=== PATIENT | male | born 1965 | race American Indian/Alaskan Native ===

== ENCOUNTER 2021-12-14 07:34 | Inpatient (IN) | payer SELFPAY ==
[2021-12-14] MEDS ORDERED: MAGNESIUM SULFATE 2 GM/50 ML BAG IV ONE (09:34)
[2021-12-14] MEDS ORDERED: methylPREDNISolone Sod Succinate 125 MG/2 ML INJ IV ONE (09:34)
[2021-12-14] MEDS ORDERED: ALBUTEROL 2.5 MG/3 ML NEBU IH ONE ×2 (09:35→13:55)
[2021-12-14] MEDS ORDERED: IPRATROPIUM 0.02% NEBU 2.5 ML IH ONE (09:35)
--- NOTE | 2021-12-14 09:42 | Emergency Department Report ---
ED Shortness of Breath HPI - General Stated Complaint: RYLAN/CP Time Seen by Provider: 12/14/21 09:20 Source: patient, EMS, old records reviewed (none available) Mode of arrival: Stretcher Limitations: No Limitations - History of Present Illness Initial Comments: 56-year-old male presents with EMS with complaints of shortness of breath. No previous medical record available for review. EMS reports they picked him up from an extended stay with child's other individuals in the room. Patient reports a past medical history of hypertension, asthma, CAD with stent, insulin-dependent diabetes. He has been short of breath with chest pain for a few days. Patient was wheezing upon EMS arrival. He was treated with albuterol 7.5 mg, Atrovent 0.5, aspirin, and nitroglycerin. EMS reports noting multiple PVCs and several episodes of nonsustained V. tach. Rhythm strip not available for review. Patient apparently was drinking all night but denies being alcoholic. He denies other substance abuse. Patient appears agitated with intermittent movement in the bed but states he is acting this way because he is cold. EMS reports that people at the scene report that his mental status was normal. Patient does appear to be mildly drowsy upon arrival. Stat blood glucose check and ABG ordered to rule out CO2 retention - Related Data Allergies Allergy/AdvReac Type Severity Reaction Status Date / Time No Known Allergies Allergy Unverified 12/14/21 09:22 ED Review of Systems ROS: Stated complaint: RYLAN/CP Other details as noted in HPI Comment: All other systems reviewed and negative ED Physical Exam - Other Other exam information: General: No acute distress Head: Atraumatic Eyes: normal appearance ENT: Moist mucous membranes Neck: Normal appearance, no midline tenderness Chest: Bilateral wheezing without tachypnea or accessory muscle use CV: Regular rate and rhythm Abdomen: Soft, normal bowel sounds, nontender, nondistended, no rebound or guarding Back: Normal inspection Extremity: Bilateral lower extremity pitting edema 2+ Neuro: Appears drowsy but easily arousable to voice, oriented x3. No facial asymmetry, speech mildly slurred, equal handgrip and foot dorsiflexion Psych: Cooperative Skin: No rash ED Course Vital Signs 12/14/21 12/14/21 12/14/21 09:27 09:31 09:36 Temperature 98.8 F Pulse Rate 105 H 105 H Pulse Rate [ Bilateral Throughout] Respiratory 19 17 Rate Respiratory Rate [Bilateral Throughout] Blood Pressure 160/92 146/95 Blood Pressure 146/95 [Left] O2 Sat by Pulse 95 92 94 Oximetry 12/14/21 12/14/21 12/14/21 09:45 10:01 10:09 Temperature 98.8 F Pulse Rate 107 H 107 H Pulse Rate [ Bilateral Throughout] Respiratory 18 19 30 H Rate Respiratory Rate [Bilateral Throughout] Blood Pressure 146/95 146/95 Blood Pressure 176/114 [Left] O2 Sat by Pulse 95 95 90 Oximetry 12/14/21 12/14/21 12/14/21 10:15 10:20 10:31 Temperature Pulse Rate 104 H 103 H Pulse Rate [ 108 H Bilateral Throughout] Respiratory 20 20 Rate Respiratory 18 Rate [Bilateral Throughout] Blood Pressure 176/114 129/102 Blood Pressure [Left] O2 Sat by Pulse 92 99 Oximetry 12/14/21 12/14/21 12/14/21 10:45 11:01 13:31 Temperature Pulse Rate 110 H 108 H 112 H Pulse Rate [ Bilateral Throughout] Respiratory 23 26 H 21 Rate Respiratory Rate [Bilateral Throughout] Blood Pressure 164/110 169/110 Blood Pressure 171/106 [Left] O2 Sat by Pulse 95 99 97 Oximetry - Reevaluation(s) Reevaluation #1: 12/14/21 10:45 ABG results noted. Discussed with respiratory therapist. Likely mixed venous. Will repeat ED Medical Decision Making - Lab Data Result diagrams: 12/14/21 10:30 12/14/21 10:30 Lab Results 12/14/21 12/14/21 12/14/21 Range/Units 09:33 10:10 10:30 WBC 6.9 (4.5-11.0) K/mm3 RBC 4.74 (3.65-5.03) M/mm3 Hgb 13.8 (11.8-15.2) gm/dl Hct 42.4 (35.5-45.6) % MCV 89 (84-94) fl MCH 29 (28-32) pg MCHC 33 (32-34) % RDW 19.5 H (13.2-15.2) % Plt Count 127 L (140-440) K/mm3 Lymph % (Auto) 17.5 (13.4-35.0) % Randall % (Auto) 4.5 (0.0-7.3) % Eos % (Auto) 1.6 (0.0-4.3) % Baso % (Auto) 2.7 H (0.0-1.8) % Lymph # (Auto) 1.2 (1.2-5.4) K/mm3 Randall # (Auto) 0.3 (0.0-0.8) K/mm3 Eos # (Auto) 0.1 (0.0-0.4) K/mm3 Baso # (Auto) 0.2 H (0.0-0.1) K/mm3 Seg Neutrophils % 73.7 H (40.0-70.0) % Seg Neutrophils # 5.1 (1.8-7.7) K/mm3 PT (12.2-14.9) Sec. INR (0.87-1.13) APTT (24.2-36.6) Sec. ABG pH 7.370 (7.350-7.450) pH Units ABG pCO2 46.4 mm Hg ABG pO2 38.6 L* (80.0-90.0) mm Hg ABG HCO3 26.3 H (20.0-26.0) mmol/L ABG O2 Saturation 71.5 L (95.0-99.0) % ABG O2 Content 13.2 (0.0-44) ABG Base Excess 0.5 (-2.0-3.0) mmol/L ABG Hemoglobin 13.6 L (14.0-18.0) gm/dl ABG Carboxyhemoglobin 2.9 (0.0-5.0) % ABG Methemoglobin 0.7 (0.0-1.5) % Oxyhemoglobin 68.9 L (95.0-99.0) % FiO2 21 % Sodium (137-145) mmol/L Potassium (3.6-5.0) mmol/L Chloride (98-107) mmol/L Carbon Dioxide (22-30) mmol/L Anion Gap mmol/L BUN (9-20) mg/dL Creatinine (0.8-1.3) mg/dL Estimated GFR ml/min BUN/Creatinine Ratio % Glucose (75-100) mg/dL Calcium (8.4-10.2) mg/dL Magnesium (1.7-2.3) mg/dL Total Bilirubin (0.1-1.2) mg/dL AST (5-40) units/L ALT (7-56) units/L Alkaline Phosphatase (35-129) units/L Ammonia (25-60) umol/L Troponin T (0.00-0.029) ng/mL NT-Pro-B Natriuret Pep (0-900) pg/mL Total Protein (6.3-8.2) g/dL Albumin (3.9-5) g/dL Albumin/Globulin Ratio % Urine Color Yellow (Yellow) Urine Turbidity Clear (Clear) Urine pH 6.0 (5.0-7.0) Ur Specific [place] 1.016 (1.003-1.030) Urine Protein 30 mg/dl (Negative) mg/dL Urine Glucose (UA) 50 (Negative) mg/dL Urine Ketones Neg (Negative) mg/dL Urine Blood Neg (Negative) Urine Nitrite Neg (Negative) Urine Bilirubin Neg (Negative) Urine Urobilinogen 4.0 (<2.0) mg/dL Ur Leukocyte Esterase Neg (Negative) Urine WBC (Auto) 1.0 (0.0-6.0) /HPF Urine RBC (Auto) 1.0 (0.0-6.0) /HPF Urine Mucus Few /HPF Urine Opiates Screen Urine Methadone Screen Ur Barbiturates Screen Ur Phencyclidine Scrn Ur Amphetamines Screen U Benzodiazepines Scrn Urine Cocaine Screen U Marijuana (THC) Screen Drugs of Abuse Note Plasma/Serum Alcohol (0-0.07) % 12/14/21 12/14/21 12/14/21 Range/Units 10:30 10:30 10:30 WBC (4.5-11.0) K/mm3 RBC (3.65-5.03) M/mm3 Hgb (11.8-15.2) gm/dl Hct (35.5-45.6) % MCV (84-94) fl MCH (28-32) pg MCHC (32-34) % RDW (13.2-15.2) % Plt Count (140-440) K/mm3 Lymph % (Auto) (13.4-35.0) % Randall % (Auto) (0.0-7.3) % Eos % (Auto) (0.0-4.3) % Baso % (Auto) (0.0-1.8) % Lymph # (Auto) (1.2-5.4) K/mm3 Randall # (Auto) (0.0-0.8) K/mm3 Eos # (Auto) (0.0-0.4) K/mm3 Baso # (Auto) (0.0-0.1) K/mm3 Seg Neutrophils % (40.0-70.0) % Seg Neutrophils # (1.8-7.7) K/mm3 PT 15.8 H (12.2-14.9) Sec. INR 1.13 (0.87-1.13) APTT 29.1 (24.2-36.6) Sec. ABG pH (7.350-7.450) pH Units ABG pCO2 mm Hg ABG pO2 (80.0-90.0) mm Hg ABG HCO3 (20.0-26.0) mmol/L ABG O2 Saturation (95.0-99.0) % ABG O2 Content (0.0-44) ABG Base Excess (-2.0-3.0) mmol/L ABG Hemoglobin (14.0-18.0) gm/dl ABG Carboxyhemoglobin (0.0-5.0) % ABG Methemoglobin (0.0-1.5) % Oxyhemoglobin (95.0-99.0) % FiO2 % Sodium 139 (137-145) mmol/L Potassium 3.5 L (3.6-5.0) mmol/L Chloride 106.3 (98-107) mmol/L Carbon Dioxide 23 (22-30) mmol/L Anion Gap 13 mmol/L BUN 6 L (9-20) mg/dL Creatinine 0.5 L (0.8-1.3) mg/dL Estimated GFR > 60 ml/min BUN/Creatinine Ratio 12 % Glucose 146 H (75-100) mg/dL Calcium 8.2 L (8.4-10.2) mg/dL Magnesium 2.50 H (1.7-2.3) mg/dL Total Bilirubin 1.10 (0.1-1.2) mg/dL AST 26 (5-40) units/L ALT 26 (7-56) units/L Alkaline Phosphatase 105 (35-129) units/L Ammonia (25-60) umol/L Troponin T < 0.010 (0.00-0.029) ng/mL NT-Pro-B Natriuret Pep 2101 H (0-900) pg/mL Total Protein 7.2 (6.3-8.2) g/dL Albumin 3.6 L (3.9-5) g/dL Albumin/Globulin Ratio 1.0 % Urine Color (Yellow) Urine Turbidity (Clear) Urine pH (5.0-7.0) Ur Specific [place] (1.003-1.030) Urine Protein (Negative) mg/dL Urine Glucose (UA) (Negative) mg/dL Urine Ketones (Negative) mg/dL Urine Blood (Negative) Urine Nitrite (Negative) Urine Bilirubin (Negative) Urine Urobilinogen (<2.0) mg/dL Ur Leukocyte Esterase (Negative) Urine WBC (Auto) (0.0-6.0) /HPF Urine RBC (Auto) (0.0-6.0) /HPF Urine Mucus /HPF Urine Opiates Screen Urine Methadone Screen Ur Barbiturates Screen Ur Phencyclidine Scrn Ur Amphetamines Screen U Benzodiazepines Scrn Urine Cocaine Screen U Marijuana (THC) Screen Drugs of Abuse Note Plasma/Serum Alcohol (0-0.07) % 12/14/21 12/14/21 12/14/21 Range/Units 10:30 10:30 11:04 WBC (4.5-11.0) K/mm3 RBC (3.65-5.03) M/mm3 Hgb (11.8-15.2) gm/dl Hct (35.5-45.6) % MCV (84-94) fl MCH (28-32) pg MCHC (32-34) % RDW (13.2-15.2) % Plt Count (140-440) K/mm3 Lymph % (Auto) (13.4-35.0) % Randall % (Auto) (0.0-7.3) % Eos % (Auto) (0.0-4.3) % Baso % (Auto) (0.0-1.8) % Lymph # (Auto) (1.2-5.4) K/mm3 Randall # (Auto) (0.0-0.8) K/mm3 Eos # (Auto) (0.0-0.4) K/mm3 Baso # (Auto) (0.0-0.1) K/mm3 Seg Neutrophils % (40.0-70.0) % Seg Neutrophils # (1.8-7.7) K/mm3 PT (12.2-14.9) Sec. INR (0.87-1.13) APTT (24.2-36.6) Sec. ABG pH (7.350-7.450) pH Units ABG pCO2 mm Hg ABG pO2 (80.0-90.0) mm Hg ABG HCO3 (20.0-26.0) mmol/L ABG O2 Saturation (95.0-99.0) % ABG O2 Content (0.0-44) ABG Base Excess (-2.0-3.0) mmol/L ABG Hemoglobin (14.0-18.0) gm/dl ABG Carboxyhemoglobin (0.0-5.0) % ABG Methemoglobin (0.0-1.5) % Oxyhemoglobin (95.0-99.0) % FiO2 % Sodium (137-145) mmol/L Potassium (3.6-5.0) mmol/L Chloride (98-107) mmol/L Carbon Dioxide (22-30) mmol/L Anion Gap mmol/L BUN (9-20) mg/dL Creatinine (0.8-1.3) mg/dL Estimated GFR ml/min BUN/Creatinine Ratio % Glucose (75-100) mg/dL Calcium (8.4-10.2) mg/dL Magnesium (1.7-2.3) mg/dL Total Bilirubin (0.1-1.2) mg/dL AST (5-40) units/L ALT (7-56) units/L Alkaline Phosphatase (35-129) units/L Ammonia 67.0 H (25-60) umol/L Troponin T (0.00-0.029) ng/mL NT-Pro-B Natriuret Pep (0-900) pg/mL Total Protein (6.3-8.2) g/dL Albumin (3.9-5) g/dL Albumin/Globulin Ratio % Urine Color (Yellow) Urine Turbidity (Clear) Urine pH (5.0-7.0) Ur Specific [place] (1.003-1.030) Urine Protein (Negative) mg/dL Urine Glucose (UA) (Negative) mg/dL Urine Ketones (Negative) mg/dL Urine Blood (Negative) Urine Nitrite (Negative) Urine Bilirubin (Negative) Urine Urobilinogen (<2.0) mg/dL Ur Leukocyte Esterase (Negative) Urine WBC (Auto) (0.0-6.0) /HPF Urine RBC (Auto) (0.0-6.0) /HPF Urine Mucus /HPF Urine Opiates Screen Negative Urine Methadone Screen Negative Ur Barbiturates Screen Negative Ur Phencyclidine Scrn Negative Ur Amphetamines Screen Negative U Benzodiazepines Scrn Negative Urine Cocaine Screen Positive U Marijuana (THC) Screen Negative Drugs of Abuse Note Disclamer Plasma/Serum Alcohol < 0.01 (0-0.07) % 12/14/21 12/14/21 Range/Units 11:50 12:32 WBC (4.5-11.0) K/mm3 RBC (3.65-5.03) M/mm3 Hgb (11.8-15.2) gm/dl Hct (35.5-45.6) % MCV (84-94) fl MCH (28-32) pg MCHC (32-34) % RDW (13.2-15.2) % Plt Count (140-440) K/mm3 Lymph % (Auto) (13.4-35.0) % Randall % (Auto) (0.0-7.3) % Eos % (Auto) (0.0-4.3) % Baso % (Auto) (0.0-1.8) % Lymph # (Auto) (1.2-5.4) K/mm3 Randall # (Auto) (0.0-0.8) K/mm3 Eos # (Auto) (0.0-0.4) K/mm3 Baso # (Auto) (0.0-0.1) K/mm3 Seg Neutrophils % (40.0-70.0) % Seg Neutrophils # (1.8-7.7) K/mm3 PT (12.2-14.9) Sec. INR (0.87-1.13) APTT (24.2-36.6) Sec. ABG pH 7.394 (7.350-7.450) pH Units ABG pCO2 42.1 mm Hg ABG pO2 62.6 L (80.0-90.0) mm Hg ABG HCO3 25.2 (20.0-26.0) mmol/L ABG O2 Saturation 93.4 L (95.0-99.0) % ABG O2 Content 17.7 (0.0-44) ABG Base Excess 0.2 (-2.0-3.0) mmol/L ABG Hemoglobin 13.9 L (14.0-18.0) gm/dl ABG Carboxyhemoglobin 2.9 (0.0-5.0) % ABG Methemoglobin 0.6 (0.0-1.5) % Oxyhemoglobin 90.1 L (95.0-99.0) % FiO2 21 % Sodium (137-145) mmol/L Potassium (3.6-5.0) mmol/L Chloride (98-107) mmol/L Carbon Dioxide (22-30) mmol/L Anion Gap mmol/L BUN (9-20) mg/dL Creatinine (0.8-1.3) mg/dL Estimated GFR ml/min BUN/Creatinine Ratio % Glucose (75-100) mg/dL Calcium (8.4-10.2) mg/dL Magnesium (1.7-2.3) mg/dL Total Bilirubin (0.1-1.2) mg/dL AST (5-40) units/L ALT (7-56) units/L Alkaline Phosphatase (35-129) units/L Ammonia (25-60) umol/L Troponin T < 0.010 (0.00-0.029) ng/mL NT-Pro-B Natriuret Pep (0-900) pg/mL Total Protein (6.3-8.2) g/dL Albumin (3.9-5) g/dL Albumin/Globulin Ratio % Urine Color (Yellow) Urine Turbidity (Clear) Urine pH (5.0-7.0) Ur Specific [place] (1.003-1.030) Urine Protein (Negative) mg/dL Urine Glucose (UA) (Negative) mg/dL Urine Ketones (Negative) mg/dL Urine Blood (Negative) Urine Nitrite (Negative) Urine Bilirubin (Negative) Urine Urobilinogen (<2.0) mg/dL Ur Leukocyte Esterase (Negative) Urine WBC (Auto) (0.0-6.0) /HPF Urine RBC (Auto) (0.0-6.0) /HPF Urine Mucus /HPF Urine Opiates Screen Urine Methadone Screen Ur Barbiturates Screen Ur Phencyclidine Scrn Ur Amphetamines Screen U Benzodiazepines Scrn Urine Cocaine Screen U Marijuana (THC) Screen Drugs of Abuse Note Plasma/Serum Alcohol (0-0.07) % - EKG Data -: EKG Interpreted by Me (pvc's) EKG shows normal: sinus rhythm, ST-T waves (no stemi) Rate: tachycardia (103) - EKG Data When compared to previous EKG there are: no significant change - Radiology Data Radiology results: report reviewed CHEST 1 VIEW INDICATION / CLINICAL INFORMATION: Dyspnea. COMPARISON: None available. FINDINGS: SUPPORT DEVICES: None. HEART / MEDIASTINUM: Enlarged LUNGS / PLEURA: Patchy perihilar and bibasilar airspace opacities. No focal consolidation or significant effusion. No pneumothorax. ADDITIONAL FINDINGS: No significant additional findings. IMPRESSION: 1. Patchy perihilar and bibasilar airspace opacities, suspicious for multifo stacy pneumonia. Mild pulmonary edema is additional consideration. 2. Cardiomegaly. - Medical Decision Making 56-year-old male presents to the hospital with wheezing and shortness of breath with unclear baseline mental status. Lab work including ABG does not reveal any acute abnormality to suggest an acute cause of encephalopathy. Patient does not have any acid-base disturbance and only has mild hypoxia with a room air PO2 of 62. UDS positive for cocaine. Patient has elevated BNP, wheezing on exam, possible infiltrates versus edema on chest x-ray. CT chest confirms multifocal focal pneumonia. CT head performed shows artifact without obvious abnormality. Patient has persistent wheezing despite ED treatment with bronchodilators, steroids, magnesium, and Lasix. 1 dose of p.o. potassium ordered. Patient treated with azithromycin, Rocephin, and COVID test ordered. Critical Care Time: No Critical care attestation.: If time is entered above; I have spent that time in minutes in the direct care of this critically ill patient, excluding procedure time. ED Disposition Clinical Impression: Pneumonia, Wheezing, Cocaine abuse Disposition: 09 ADMITTED INPATIENT Is pt being admited?: Yes Condition: Stable Instructions: Bacterial Pneumonia (ED) Time of Disposition: 14:09
--- NOTE | 2021-12-14 10:02 | XRay Report ---
CHEST 1 VIEW INDICATION / CLINICAL INFORMATION: Dyspnea. COMPARISON: None available. FINDINGS: SUPPORT DEVICES: None. HEART / MEDIASTINUM: Enlarged LUNGS / PLEURA: Patchy perihilar and bibasilar airspace opacities. No focal consolidation or signific ant effusion. No pneumothorax. ADDITIONAL FINDINGS: No significant additional findings. IMPRESSION: 1. Patchy perihilar and bibasilar airspace opacities, suspicious for multifocal pneumonia. Mild pulm onary edema is additional consideration. 2. Cardiomegaly. Signer Name: Mario Alberto Arana MD Signed: 12/14/2021 9:57 AM Workstation Name: [id number]
[2021-12-14 10:30] LABS: ABG Base Excess 0.5 mmol/L (-2.0-3.0); ABG HCO3 26.3 mmol/L (20.0-26.0); ABG Methemoglobin 0.7 % (0.0-1.5); ABG Oxygen Saturation 71.5 % (95.0-99.0); ABG PCO2 46.4 mm Hg; ABG PH 7.37 pH Units (7.350-7.450)
[2021-12-14 10:44] LABS: ABG PO2 38.6 mm Hg (80.0-90.0)
[2021-12-14 11:16] LABS: Bilirubin,Urine NEG (Negative); Blood,Urine NEG (Negative); Color,Urine Yellow (Yellow); Mucus,Urine FEW /HPF
[2021-12-14 11:24] LABS: Amphetamine Screen,Urine Negative; Benzodiazepines Screen,Urine Negative; Cannabinoid Screen,Urine Negative; Methadone Screen,Urine Negative; Opiate Screen,Urine Negative
[2021-12-14 11:30] LABS: Basophils # (Auto) 0.2 K/mm3 (0.0-0.1); Basophils % (Auto) 2.7 % (0.0-1.8); Eosinophils # (Auto) 0.1 K/mm3 (0.0-0.4); Eosinophils % (Auto) 1.6 % (0.0-4.3); Hematocrit 42.4 % (35.5-45.6); Hemoglobin 13.8 gm/dl (11.8-15.2); Lymphocytes # (Auto) 1.2 K/mm3 (1.2-5.4); Lymphocytes % (Auto) 17.5 % (13.4-35.0); Mean Corpuscular HGB Conc 33 % (32-34); Mean Corpuscular Volume 89 fl (84-94); Monocytes # (Auto) 0.3 K/mm3 (0.0-0.8); Monocytes % (Auto) 4.5 % (0.0-7.3); Platelet Count 127 K/mm3 (140-440); Red Blood Count 4.74 M/mm3 (3.65-5.03); Red Cell Distribution Width 19.5 % (13.2-15.2)
[2021-12-14 11:42] LABS: INR 1.13 (0.87-1.13)
[2021-12-14 11:43] LABS: Partial Thromboplastin Time 29.1 Sec. (24.2-36.6)
[2021-12-14 11:54] LABS: Alanine Aminotransferase 26 units/L (7-56); Albumin 3.6 g/dL (3.9-5); Blood Urea Nitrogen 6 mg/dL (9-20); Calcium 8.2 mg/dL (8.4-10.2); Hemolysis Index 2
[2021-12-14 12:03] LABS: BUN/Creatinine Ratio 12
[2021-12-14 12:09] LABS: Cocaine Screen,Urine Positive
[2021-12-14] MEDS ORDERED: POTASSIUM CHLORIDE ER 20 MEQ TAB PO ONE (12:12)
[2021-12-14] MEDS ORDERED: FUROSEMIDE 40 MG/4 ML INJ IV ONE (12:13)
[2021-12-14] MEDS ORDERED: cefTRIAXone/NS 2 GM/100 ML 2 GM/100 ML BAG IV ONE (12:13)
[2021-12-14] MEDS ORDERED: AZITHROMYCIN/NS 500 MG/250 ML 500 MG/250 ML BAG IV ONE (12:13)
[2021-12-14 12:21] LABS: ABG Base Excess 0.2 mmol/L (-2.0-3.0); ABG HCO3 25.2 mmol/L (20.0-26.0); ABG Methemoglobin 0.6 % (0.0-1.5); ABG Oxygen Saturation 93.4 % (95.0-99.0); ABG PCO2 42.1 mm Hg; ABG PH 7.394 pH Units (7.350-7.450); ABG PO2 62.6 mm Hg (80.0-90.0)
--- NOTE | 2021-12-14 14:02 | Cat Scan Report ---
CT HEAD WITHOUT CONTRAST INDICATION / CLINICAL INFORMATION: Decreased Mental Status. TECHNIQUE: All CT scans at this location are performed using CT dose reduction for ALARA by means of automated exposure control. Severely motion degraded examination COMPARISON: None available. FINDINGS: HEMORRHAGE: None. ACUTE INFARCTION: No Significant Abnormality MASS/MASS EFFECT: No Significant Abnormality CEREBRAL PARENCHYMA: No acute focal attenuation abnormality. VENTRICULAR SYSTEM: Normal in size and morphology for the patient's age. ORBITS: Normal as visualized. SKULL: No significant abnormality. PARANASAL SINUSES / MASTOID AIR CELLS: Mild mucosal thickening of ethmoid sinuses.. ADDITIONAL FINDINGS: None. IMPRESSION: 1. Severe motion degradation significantly limits evaluation. 2. Allowing for limitation, no definite acute intracranial abnormality. If there is persistent clini stacy concern for intracranial abnormality, follow-up CT should be considered when patient is able to b e more cooperative. 3. Mild ethmoid sinus disease. Signer Name: Mario Alberto Arana MD Signed: 12/14/2021 1:58 PM Workstation Name: [id number]
--- NOTE | 2021-12-14 14:05 | Cat Scan Report ---
CT CHEST WITH CONTRAST INDICATION / CLINICAL INFORMATION: S.O.B., abnormal breath sounds and CXR. TECHNIQUE: Axial CT images were obtained through the chest after IV contrast. All CT scans at this [facility] are performed using CT dose reduction for ALARA by means of automated exposure control. COMPARISON: Chest radiograph earlier same day FINDINGS: HEART: Mildly enlarged CORONARY ARTERY CALCIFICATION: Multivessel THORACIC AORTA: No significant abnormality. MEDIASTINUM / ARPIT: No significant abnormality. PLEURA: No pleural effusion. No pneumothorax. LUNGS: Evaluation is severely degraded secondary to patient respiratory motion. There are patchy airs pace opacities throughout bilateral lungs, most notably involving the right upper and left lower lobe s. ADDITIONAL FINDINGS: None. UPPER ABDOMEN: Trace amount of perihepatic ascites. SKELETAL SYSTEM: No significant abnormality. IMPRESSION: 1. Severely motion degraded examination secondary to patient respiratory motion artifact. 2. Patchy airspace opacities throughout the lungs, most notably within the right upper and left lowe r lobes, most suspicious for multilobar pneumonia. 3. Other chronic findings as above. Signer Name: Mario Alberto Arana MD Signed: 12/14/2021 2:01 PM Workstation Name: [id number]
[2021-12-14] MEDS ORDERED: ONDANSETRON 4 MG/2 ML INJ IV PRN (14:13)
[2021-12-14] MEDS ORDERED: ALBUTEROL 2.5 MG/3 ML NEBU IH PRN (14:13)
[2021-12-14] MEDS ORDERED: HYDROmorphone 0.5 MG/0.5 ML INJ IV PRN (14:13)
[2021-12-14] MEDS ORDERED: ACETAMINOPHEN 325 MG TAB PO PRN (14:13)
[2021-12-14] MEDS ORDERED: oxyCODONE /ACETAMINOPHEN 5-325MG TAB PO PRN (14:13)
--- NOTE | 2021-12-14 14:18 | History and Physical Report ---
History of Present Illness Chief complaint: I feel short of breath History of present illness: 56 YO Male with HTN, Asthma, CAD S/P Stent Placement, DM presents to ED for evaluation. Patient is lethargic at time of evaluation and provides minimal history. Patient reports "I feel short of breath". Additional history taken EMS staff, as well as ED staff. EMS was notified for the aforementioned symptoms and upon arrival to the patient's extended stay hotel room the patient was found to be in distress and subsequently transported to [facility] for further care and evaluation of the aforementioned symptoms. The patient was seen and evaluated in the emergency department. All lab and imaging studies reviewed. Patient found to have a pulse oximetry of 88% on room air which is consistent with acute hypoxemic respiratory failure. Chest x-ray revealed bilateral pneumonia. Patient admitted to medical floor and initiated on pneumonia protocol as well as coronavirus protocol due to increased risk of worsening symptoms and for medical stabilization. No reports of fever, chills, chest pain, palpitation, skin rash, recent contact, productive cough, known exposure to COVID-19. No prior admission for review. No medication listed at time of admission for reconciliation. Advanced care planning conducted in ED. Patient has diminished cognition at time of evaluation but has a positive gag reflex and is able to protect his airway without difficulty. Past History Past Medical History: CAD, diabetes, hypertension Past Surgical History: Other (Cardiac stent placement) Social history: single, alcohol abuse. denies: smoking Family history: hypertension Medications and Allergies Allergies Allergy/AdvReac Type Severity Reaction Status Date / Time No Known Allergies Allergy Unverified 12/14/21 09:22 Active Meds: Active Medications Acetaminophen (Acetaminophen 325 Mg Tab) 650 mg PO Q4H PRN PRN Reason: Pain MILD(1-3)/Fever >100.5/ARIAS Albuterol (Albuterol 2.5 Mg/3 Ml Nebu) 2.5 mg IH Q4HRT PRN PRN Reason: Shortness Of Breath Ascorbic Acid (Ascorbic Acid 500 Mg Tab) 500 mg PO BID ULISES Azithromycin (Azithromycin 250 Mg Tab) 500 mg PO QDAY ULISES; Protocol Cholecalciferol (Cholecalciferol (Vit D3) 400 Unit Tab) 1,000 unit PO QDAY ULISES Heparin Sodium (Porcine) (Heparin 5,000 Unit/1 Ml Vial) 5,000 unit SUB-Q Q12HR ULISES Hydromorphone HCl (Hydromorphone 0.5 Mg/0.5 Ml Inj) 0.25 mg IV Q23H PRN PRN Reason: Pain, Moderate (4-6) Ceftriaxone Sodium (Rocephin/Ns 2 Gm/100 Ml) 2 gm in 100 mls @ 200 mls/hr IV Q24H ULISES; Protocol Methylprednisolone Sodium Succinate (Methylprednisolone Sod Succinate 40 Mg/1 Ml Inj) 40 mg IV Q8HR ULISES Ondansetron HCl (Ondansetron 4 Mg/2 Ml Inj) 4 mg IV Q8H PRN PRN Reason: Nausea And Vomiting Oxycodone/Acetaminophen (Oxycodone /Acetaminophen 5-325mg Tab) 1 tab PO Q16H PRN PRN Reason: Pain, Moderate (4-6) Sodium Chloride (Sodium Chloride 0.9% 10 Ml Flush Syringe) 10 ml IV BID ULISES Sodium Chloride (Sodium Chloride 0.9% 10 Ml Flush Syringe) 10 ml IV PRN PRN PRN Reason: LINE FLUSH Zinc Sulfate (Zinc Sulfate 220 Mg Cap) 220 mg PO BID [facility] Review of Systems ROS unobtainable: due to mental status Exam - Constitutional Vitals: Temp Pulse Resp BP Pulse Ox 98.8 F 112 H 21 171/106 97 12/14/21 10:09 12/14/21 13:31 12/14/21 13:31 12/14/21 13:31 12/14/21 13:31 General appearance: Present: mild distress - EENT Eyes: Present: PERRL ENT: hearing intact, clear oral mucosa - Neck Neck: Present: supple, normal ROM - Respiratory Respiratory effort: labored, accessory muscle use Respiratory: bilateral: diminished, rhonchi - Cardiovascular Heart Sounds: Present: S1 & S2. Absent: rub, click - Extremities Extremities: pulses symmetrical, No edema Peripheral Pulses: within normal limits - Abdominal General gastrointestinal: Present: soft, non-tender, non-distended, normal bowel sounds Male genitourinary: Present: normal - Integumentary Integumentary: Present: clear, warm, dry - Musculoskeletal Musculoskeletal: gait normal, strength equal bilaterally - Psychiatric Psychiatric: no appropriate mood/affect, no intact judgment & insight - Neurologic Neurologic: CNII-XII intact, moves all extremities, no gait normal HEART Score - HEART Score Troponin: Troponin T < 0.010 ng/mL (0.00-0.029) 12/14/21 12:32 Results - Labs CBC & Chem 7: 12/14/21 10:30 12/14/21 14:34 Labs: Abnormal lab results 12/14/21 12/14/21 12/14/21 Range/Units 10:10 10:30 10:30 RDW 19.5 H (13.2-15.2) % Plt Count 127 L (140-440) K/mm3 Baso % (Auto) 2.7 H (0.0-1.8) % Baso # (Auto) 0.2 H (0.0-0.1) K/mm3 Seg Neutrophils % 73.7 H (40.0-70.0) % PT 15.8 H (12.2-14.9) Sec. ABG pO2 38.6 L* (80.0-90.0) mm Hg ABG HCO3 26.3 H (20.0-26.0) mmol/L ABG O2 Saturation 71.5 L (95.0-99.0) % ABG Hemoglobin 13.6 L (14.0-18.0) gm/dl Oxyhemoglobin 68.9 L (95.0-99.0) % Potassium (3.6-5.0) mmol/L BUN (9-20) mg/dL Creatinine (0.8-1.3) mg/dL Glucose (75-100) mg/dL Calcium (8.4-10.2) mg/dL Magnesium (1.7-2.3) mg/dL Ammonia (25-60) umol/L NT-Pro-B Natriuret Pep (0-900) pg/mL Albumin (3.9-5) g/dL 12/14/21 12/14/21 12/14/21 Range/Units 10:30 10:30 10:30 RDW (13.2-15.2) % Plt Count (140-440) K/mm3 Baso % (Auto) (0.0-1.8) % Baso # (Auto) (0.0-0.1) K/mm3 Seg Neutrophils % (40.0-70.0) % PT (12.2-14.9) Sec. ABG pO2 (80.0-90.0) mm Hg ABG HCO3 (20.0-26.0) mmol/L ABG O2 Saturation (95.0-99.0) % ABG Hemoglobin (14.0-18.0) gm/dl Oxyhemoglobin (95.0-99.0) % Potassium 3.5 L (3.6-5.0) mmol/L BUN 6 L (9-20) mg/dL Creatinine 0.5 L (0.8-1.3) mg/dL Glucose 146 H (75-100) mg/dL Calcium 8.2 L (8.4-10.2) mg/dL Magnesium 2.50 H (1.7-2.3) mg/dL Ammonia 67.0 H (25-60) umol/L NT-Pro-B Natriuret Pep 2101 H (0-900) pg/mL Albumin 3.6 L (3.9-5) g/dL 12/14/21 Range/Units 11:50 RDW (13.2-15.2) % Plt Count (140-440) K/mm3 Baso % (Auto) (0.0-1.8) % Baso # (Auto) (0.0-0.1) K/mm3 Seg Neutrophils % (40.0-70.0) % PT (12.2-14.9) Sec. ABG pO2 62.6 L (80.0-90.0) mm Hg ABG HCO3 (20.0-26.0) mmol/L ABG O2 Saturation 93.4 L (95.0-99.0) % ABG Hemoglobin 13.9 L (14.0-18.0) gm/dl Oxyhemoglobin 90.1 L (95.0-99.0) % Potassium (3.6-5.0) mmol/L BUN (9-20) mg/dL Creatinine (0.8-1.3) mg/dL Glucose (75-100) mg/dL Calcium (8.4-10.2) mg/dL Magnesium (1.7-2.3) mg/dL Ammonia (25-60) umol/L NT-Pro-B Natriuret Pep (0-900) pg/mL Albumin (3.9-5) g/dL Assessment and Plan - Patient Problems (1) Acute hypoxemic respiratory failure Current Visit: Yes Status: Acute (2) Pneumonia Current Visit: Yes Status: Acute Plan to address problem: Chest x-ray, supplemental oxygen, pulse oximetry, nebulizer therapy, IV antibiotic therapy, blood culture. (3) Suspected 2019 novel coronavirus infection Current Visit: Yes Status: Acute Plan to address problem: Coronavirus protocol: Chest x-ray, supplemental oxygen, pulse oximetry, IV antibiotic therapy, IV steroid therapy, prophylactic anticoagulation, vitamin C therapy, vitamin D therapy, zinc therapy, (4) Cocaine dependence Current Visit: Yes Status: Acute Qualifiers: Complication of substance-induced condition: with unspecified complication Plan to address problem: Patient counseled regarding absence from cocaine. Patient instructed to seek outpatient drug dependence counseling at discharge. (5) Alcohol dependence Current Visit: Yes Status: Acute Qualifiers: Complication of substance-induced condition: with unspecified complication Plan to address problem: CIWA protocol, thiamine, folic acid, multivitamin daily, banana bag. Supportive care. (6) Accelerated hypertension Current Visit: Yes Status: Acute Plan to address problem: Monitor blood pressure every shift, continue medical management. (7) Cardiomyopathy Current Visit: Yes Status: Acute Plan to address problem: Patient found to have an elevated BNP. Echocardiogram ordered and pending at time of admission, supportive care. Patient symptomatology suspected secondary to cocaine dependence. (8) DVT prophylaxis Current Visit: Yes Status: Acute Plan to address problem: SCD to bilateral lower extremities while in bed (9) Advance care planning Current Visit: Yes Status: Acute Plan to address problem: Disease education data, care plan discussed, diagnosis discussed, prognosis discussed, patient is full code. Patient knowledges understanding agreement with care plan, +30 minutes. (10) Preventative health care Current Visit: Yes Status: Acute Plan to address problem: Patient counseled regarding balanced diet, medication compliance, outpatient follow-up with primary care physician for all age and risk factor appropriate screening test. +30 minutes.
[2021-12-14 16:48] LABS: C-Reactive Protein 5.5 mg/dL (0.00-1.30)
[2021-12-14] MEDS ORDERED: LORazepam 2 MG/ML VIAL IV PRN ×2 (17:01)
[2021-12-14] MEDS ORDERED: MULTIVITAMINS ,THERAPEUTIC TAB PO SCH (17:02)
[2021-12-14] MEDS ORDERED: THIAMINE 100 MG TAB PO SCH (17:02)
[2021-12-14] MEDS ORDERED: THIAMINE 100 MG, FOLIC ACID 1 MG, MULTIPLE VITAMIN INJ, ADULT 10 ML in SODIUM CHLORIDE ... IV ONE (18:00)
[2021-12-14] MEDS: methylPREDNISolone Sod Succinate 40 MG/1 ML INJ IV SCH (18:33)
--- NOTE | 2021-12-14 21:47 | Electrocardiograph Report ---
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
[2021-12-15] MEDS: HEPARIN 5,000 UNIT/1 ML VIAL SUB-Q SCH ×3 (02:00→22:28)
[2021-12-15] MEDS ORDERED: hydrALAZINE 20 MG/1 ML INJ IV ONE (02:43)
[2021-12-15] MEDS: ZINC SULFATE 220 MG CAP PO SCH ×3 (02:45→22:28)
[2021-12-15] MEDS: ASCORBIC ACID 500 MG TAB PO SCH ×3 (02:45→22:28)
[2021-12-15] MEDS: methylPREDNISolone Sod Succinate 40 MG/1 ML INJ IV SCH ×3 (02:45→18:37)
[2021-12-15 05:56] LABS: Basophils % (Auto) 0.2 % (0.0-1.8); Hematocrit 41.6 % (35.5-45.6); Hemoglobin 13.5 gm/dl (11.8-15.2); Lymphocytes # (Auto) 0.6 K/mm3 (1.2-5.4); Lymphocytes % (Auto) 7.4 % (13.4-35.0); Mean Corpuscular HGB Conc 33 % (32-34); Mean Corpuscular Volume 89 fl (84-94); Monocytes # (Auto) 0.2 K/mm3 (0.0-0.8); Monocytes % (Auto) 2.6 % (0.0-7.3); Platelet Count 132 K/mm3 (140-440); Red Blood Count 4.67 M/mm3 (3.65-5.03); Red Cell Distribution Width 19.5 % (13.2-15.2)
[2021-12-15 06:16] LABS: Blood Urea Nitrogen 8 mg/dL (9-20); Calcium 8.6 mg/dL (8.4-10.2); Hemolysis Index 1
[2021-12-15 06:19] LABS: BUN/Creatinine Ratio 16
--- NOTE | 2021-12-15 11:05 | Progress Note ---
Assessment and Plan Assessment and plan: #Pneumonia Chest x-ray, supplemental oxygen, pulse oximetry, nebulizer therapy, IV antibiotic therapy, blood culture #Acute hypoxemic respiratory failure-resolved -Patient currently saturating greater then 90% on room air -We will continue treatment for problem above #Suspected 2019 novel coronavirus infection -COVID 19 PCR ordered -We will continue with empiric treatment until final PCR result #Elevated BNP -NT proBNP 2101 -Echocardiogram shows normal ejection fraction -Likely secondary to cocaine use; patient has no signs or symptoms of CHF exacerbation #Elevated D-dimer -CT chest w/ contrast shows bilateral patchy infiltrates -CT angiogram of chest ordered to rule out PE #Cocaine dependence -Patient counseled regarding absence from cocaine. Patient instructed to seek outpatient drug dependence counseling at discharge. #Alcohol dependence -CIWA protocol, thiamine, folic acid, multivitamin daily, banana bag. Supportive care. #Hypertension -Patient denies history of hypertension and currently takes no medications -Monitor blood pressure every shift -Continue as needed medication we will start medications pending -Full medical reconciliation #Advance care planning -Disease education data, care plan discussed, diagnosis discussed, prognosis discussed, patient is full code. Patient knowledges understanding agreement with care plan, +30 minutes. History Interval history: No acute events overnight. Patient was in and out of sleep during interview. He refused to participate. Hospitalist Physical - Physical exam Narrative exam: GENERAL: Well-developed well-nourished. In no acute distress. HEENT: Normocephalic. Atraumatic. NECK: Supple. CHEST/LUNGS: CTAB on room air HEART/CARDIOVASCULAR: RRR. No murmur, rubs or gallops appreciated. ABDOMEN: +BS. NT/ND. SKIN: No rashes noted. NEURO: Unable to assess due to patient unwillingness to participate in interview MUSCULOSKELETAL: No joint effusion EXTREMITIES: No cyanosis, cubbing or edema. PSYCH: Alert and oriented x3. - Constitutional Vitals: Temp Pulse Resp BP Pulse Ox 98.4 F 105 H 20 140/94 97 12/15/21 05:25 12/15/21 06:00 12/15/21 05:25 12/15/21 06:00 12/15/21 08:56 General appearance: Present: mild distress HEART Score - HEART Score Troponin: Troponin T 0.013 ng/mL (0.00-0.029) 12/14/21 14:34 Results - Labs CBC & Chem 7: 12/15/21 05:33 12/15/21 05:33 Labs: Laboratory Last Values WBC 8.1 K/mm3 (4.5-11.0) 12/15/21 05:33 RBC 4.67 M/mm3 (3.65-5.03) 12/15/21 05:33 Hgb 13.5 gm/dl (11.8-15.2) 12/15/21 05:33 Hct 41.6 % (35.5-45.6) 12/15/21 05:33 MCV 89 fl (84-94) 12/15/21 05:33 MCH 29 pg (28-32) 12/15/21 05:33 MCHC 33 % (32-34) 12/15/21 05:33 RDW 19.5 % (13.2-15.2) H 12/15/21 05:33 Plt Count 132 K/mm3 (140-440) L 12/15/21 05:33 Lymph % (Auto) 7.4 % (13.4-35.0) L 12/15/21 05:33 [place] % (Auto) 2.6 % (0.0-7.3) 12/15/21 05:33 Eos % (Auto) 0.0 % (0.0-4.3) 12/15/21 05:33 Baso % (Auto) 0.2 % (0.0-1.8) 12/15/21 05:33 Lymph # (Auto) 0.6 K/mm3 (1.2-5.4) L 12/15/21 05:33 [place] # (Auto) 0.2 K/mm3 (0.0-0.8) 12/15/21 05:33 Eos # (Auto) 0.0 K/mm3 (0.0-0.4) 12/15/21 05:33 Baso # (Auto) 0.0 K/mm3 (0.0-0.1) 12/15/21 05:33 Seg Neutrophils % 89.8 % (40.0-70.0) H 12/15/21 05:33 Seg Neutrophils # 7.3 K/mm3 (1.8-7.7) 12/15/21 05:33 PT 15.8 Sec. (12.2-14.9) H 12/14/21 10:30 INR 1.13 (0.87-1.13) 12/14/21 10:30 APTT 29.1 Sec. (24.2-36.6) 12/14/21 10:30 D-Dimer 690.26 ng/mlDDU (0-234) H 12/14/21 14:34 ABG pH 7.394 pH Units (7.350-7.450) 12/14/21 11:50 ABG pCO2 42.1 mm Hg 12/14/21 11:50 ABG pO2 62.6 mm Hg (80.0-90.0) L 12/14/21 11:50 ABG HCO3 25.2 mmol/L (20.0-26.0) 12/14/21 11:50 ABG O2 Saturation 93.4 % (95.0-99.0) L 12/14/21 11:50 ABG O2 Content 17.7 (0.0-44) 12/14/21 11:50 ABG Base Excess 0.2 mmol/L (-2.0-3.0) 12/14/21 11:50 ABG Hemoglobin 13.9 gm/dl (14.0-18.0) L 12/14/21 11:50 ABG Carboxyhemoglobin 2.9 % (0.0-5.0) 12/14/21 11:50 ABG Methemoglobin 0.6 % (0.0-1.5) 12/14/21 11:50 Oxyhemoglobin 90.1 % (95.0-99.0) L 12/14/21 11:50 FiO2 21 % 12/14/21 11:50 Sodium 138 mmol/L (137-145) 12/15/21 05:33 Potassium 4.0 mmol/L (3.6-5.0) 12/15/21 05:33 Chloride 104.9 mmol/L (98-107) 12/15/21 05:33 Carbon Dioxide 25 mmol/L (22-30) 12/15/21 05:33 Anion Gap 12 mmol/L 12/15/21 05:33 BUN 8 mg/dL (9-20) L 12/15/21 05:33 Creatinine 0.5 mg/dL (0.8-1.3) L 12/15/21 05:33 Estimated GFR > 60 ml/min 12/15/21 05:33 BUN/Creatinine Ratio 16 % 12/15/21 05:33 Glucose 291 mg/dL (75-100) H 12/15/21 05:33 Calcium 8.6 mg/dL (8.4-10.2) 12/15/21 05:33 Magnesium 2.50 mg/dL (1.7-2.3) H 12/14/21 10:30 Ferritin 165.6 ng/mL (30.0-300.0) 12/14/21 14:34 Total Bilirubin 1.10 mg/dL (0.1-1.2) 12/14/21 10:30 AST 26 units/L (5-40) 12/14/21 10:30 ALT 26 units/L (7-56) 12/14/21 10:30 Alkaline Phosphatase 105 units/L (35-129) 12/14/21 10:30 Ammonia 67.0 umol/L (25-60) H 12/14/21 10:30 Lactate Dehydrogenase 386 units/L (91-180) H 12/14/21 14:34 Troponin T 0.013 ng/mL (0.00-0.029) 12/14/21 14:34 C-Reactive Protein 5.50 mg/dL (0.00-1.30) H 12/14/21 14:34 NT-Pro-B Natriuret Pep 2101 pg/mL (0-900) H 12/14/21 10:30 Total Protein 7.2 g/dL (6.3-8.2) 12/14/21 10:30 Albumin 3.6 g/dL (3.9-5) L 12/14/21 10:30 Albumin/Globulin Ratio 1.0 % 12/14/21 10:30 Urine Color Yellow (Yellow) 12/14/21 09:33 Urine Turbidity Clear (Clear) 12/14/21 09:33 Urine pH 6.0 (5.0-7.0) 12/14/21 09:33 Ur Specific [place] 1.016 (1.003-1.030) 12/14/21 09:33 Urine Protein 30 mg/dl mg/dL (Negative) 12/14/21 09:33 Urine Glucose (UA) 50 mg/dL (Negative) 12/14/21 09:33 Urine Ketones Neg mg/dL (Negative) 12/14/21 09:33 Urine Blood Neg (Negative) 12/14/21 09:33 Urine Nitrite Neg (Negative) 12/14/21 09:33 Urine Bilirubin Neg (Negative) 12/14/21 09:33 Urine Urobilinogen 4.0 mg/dL (<2.0) 12/14/21 09:33 Ur Leukocyte Esterase Neg (Negative) 12/14/21 09:33 Urine WBC (Auto) 1.0 /HPF (0.0-6.0) 12/14/21 09:33 Urine RBC (Auto) 1.0 /HPF (0.0-6.0) 12/14/21 09:33 Urine Mucus Few /HPF 12/14/21 09:33 Urine Opiates Screen Negative 12/14/21 11:04 Urine Methadone Screen Negative 12/14/21 11:04 Ur Barbiturates Screen Negative 12/14/21 11:04 Ur Phencyclidine Scrn Negative 12/14/21 11:04 Ur Amphetamines Screen Negative 12/14/21 11:04 U Benzodiazepines Scrn Negative 12/14/21 11:04 Urine Cocaine Screen Positive 12/14/21 11:04 U Marijuana (THC) Screen Negative 12/14/21 11:04 Drugs of Abuse Note Disclamer 12/14/21 11:04 Plasma/Serum Alcohol < 0.01 % (0-0.07) 12/14/21 10:30 Microbiology: Microbiology 12/14/21 10:30 Peripheral/Venous Blood Culture - Preliminary Culture in Progress 12/14/21 10:30 Peripheral/Venous Blood Culture - Preliminary Culture in Progress Soto/IV: Voiding Method Toilet Active Medications - Current Medications Current Medications: Generic Name Dose Route Start Last Admin Trade Name Freq PRN Reason Stop Dose Admin Acetaminophen 650 mg 12/14/21 14:13 Acetaminophen 325 Mg Tab PO Q4H PRN Pain MILD(1-3)/Fever >100.5/ARIAS Albuterol 2.5 mg 12/14/21 14:13 Albuterol 2.5 Mg/3 Ml Nebu IH Q4HRT PRN Shortness Of Breath Ascorbic Acid 500 mg 12/14/21 22:00 12/15/21 02:45 Ascorbic Acid 500 Mg Tab PO 500 mg BID ULISES Administration Azithromycin 500 mg 12/15/21 10:00 Azithromycin 250 Mg Tab PO 12/18/21 10:01 QDAY [facility] Protocol Cholecalciferol 1,000 unit 12/15/21 10:00 Cholecalciferol (Vit D3) 1000 Unit (25 Mcg) Tab PO QDAY ULISES Folic Acid 1 mg 12/15/21 10:00 Folic Acid 1 Mg Tab PO QDAY [facility] Heparin Sodium (Porcine) 5,000 unit 12/14/21 22:00 12/15/21 02:00 Heparin 5,000 Unit/1 Ml Vial SUB-Q 5,000 unit Q12HR [facility] Administration Hydromorphone HCl 0.25 mg 12/14/21 14:13 Hydromorphone 0.5 Mg/0.5 Ml Inj IV Q23H PRN Pain, Moderate (4-6) Ceftriaxone Sodium 2 gm in 100 mls @ 200 mls/hr 12/15/21 14:00 Rocephin/Ns 2 Gm/100 Ml IV 12/18/21 18:59 Q24H [facility] Protocol Lorazepam 2 mg 12/14/21 17:01 12/15/21 02:46 Lorazepam 2 Mg/Ml Vial IV 2 mg Q1HR PRN Administration CIWA-Ar 8-15 Lorazepam 4 mg 12/14/21 17:01 Lorazepam 2 Mg/Ml Vial IV Q1HR PRN CIWA-Ar 16-25 Methylprednisolone Sodium Succinate 40 mg 12/14/21 18:00 12/15/21 02:45 Methylprednisolone Sod Succinate 40 Mg/1 Ml Inj IV 40 mg Q8H [facility] Administration Multivitamins 1 each 12/15/21 10:00 Multivitamins ,Therapeutic Tab PO DAILY [facility] Ondansetron HCl 4 mg 12/14/21 14:13 Ondansetron 4 Mg/2 Ml Inj IV Q8H PRN Nausea And Vomiting Oxycodone/Acetaminophen 1 tab 12/14/21 14:13 Oxycodone /Acetaminophen 5-325mg Tab PO Q16H PRN Pain, Moderate (4-6) Sodium Chloride 10 ml 12/14/21 22:00 12/15/21 02:45 Sodium Chloride 0.9% 10 Ml Flush Syringe IV 10 ml BID ULISES Administration Sodium Chloride 10 ml 12/14/21 14:13 Sodium Chloride 0.9% 10 Ml Flush Syringe IV PRN PRN LINE FLUSH Thiamine HCl 100 mg 12/15/21 10:00 Thiamine 100 Mg Tab PO QDAY ULISES Zinc Sulfate 220 mg 12/14/21 22:00 12/15/21 02:45 Zinc Sulfate 220 Mg Cap PO 220 mg BID ULISES Administration
[2021-12-15] MEDS: AZITHROMYCIN 250 MG TAB PO SCH (11:32)
[2021-12-15] MEDS: THIAMINE 100 MG TAB PO SCH (11:32)
[2021-12-15] MEDS: CHOLECALCIFEROL (VIT D3) 1000 UNIT (25 mcg) TAB PO SCH (11:32)
[2021-12-15] MEDS: MULTIVITAMINS ,THERAPEUTIC TAB PO SCH (11:33)
[2021-12-15] MEDS: FOLIC ACID 1 MG TAB PO SCH (11:34)
[2021-12-15] MEDS: cefTRIAXone/NS 2 GM/100 ML 2 GM/100 ML BAG IV SCH (15:00)
--- NOTE | 2021-12-15 23:11 | Cat Scan Report ---
CTA CHEST WITH CONTRAST INDICATION / CLINICAL INFORMATION: rule out PE. TECHNIQUE: Axial CT images were obtained through the chest after injection of 100 cc Omnipaque 350 IV contrast. 3 plane MIP and/or 3D reconstructions were produced. All CT scans at this location are per formed using CT dose reduction for ALARA by means of automated exposure control. COMPARISON: None available. FINDINGS: VASCULAR FINDINGS: PULMONARY ARTERY: Pulmonary artery is normal in size. No filling defects are present compatible with pulmonary artery embolus.. THORACIC AORTA: No significant abnormality. CORONARY ARTERY CALCIFICATION: Absent -- None. NONVASCULAR FINDINGS: LOWER NECK: Soft tissues and musculature of the lower neck demonstrate no significant abnormality. Th e thyroid demonstrates no significant abnormality. HEART: No significant abnormality. MEDIASTINUM / ARPIT: No significant abnormality. ESOPHAGUS: Mild wall thickening of the mid to lower esophagus is demonstrated, nonspecific finding. LYMPH NODES: Minimally enlarged right hilar and subcarinal lymph nodes. LUNGS: Pleural/subpleural patulous regions of groundglass attenuation primarily within the right uppe r lobe. PLEURA: No pleural effusion. No pneumothorax. THORACIC SOFT TISSUES: No significant abnormality of the chest wall or upper thoracic musculature. BONES: No significant skeletal abnormalities. ADDITIONAL CHEST FINDINGS: None. UPPER ABDOMEN: Small amount of fat stranding adjacent to pancreatic tail along anterior left pararena l fascia. IMPRESSION: 1. No CT evidence for pulmonary embolism. 2. Patulous regions of lung attenuation primarily within the right upper lobe. Reflect infectious or inflammatory process. 3. Other findings as detailed. Signer Name: Akira Eldridge II, MD Signed: 12/15/2021 11:07 PM Workstation Name: [id number]
[2021-12-16] MEDS: methylPREDNISolone Sod Succinate 40 MG/1 ML INJ IV SCH ×3 (02:46→20:53)
[2021-12-16] MEDS: ASCORBIC ACID 500 MG TAB PO SCH ×2 (09:40→21:00)
[2021-12-16] MEDS: NIFEdipine XL 60 MG TAB PO SCH (09:40)
[2021-12-16] MEDS: LOSARTAN 50 MG TAB PO SCH (09:40)
[2021-12-16] MEDS: AZITHROMYCIN 250 MG TAB PO SCH (09:40)
[2021-12-16] MEDS: ZINC SULFATE 220 MG CAP PO SCH ×2 (09:40→21:00)
[2021-12-16] MEDS: HEPARIN 5,000 UNIT/1 ML VIAL SUB-Q SCH ×2 (09:41→21:00)
[2021-12-16] MEDS: FOLIC ACID 1 MG TAB PO SCH (09:41)
[2021-12-16] MEDS: MULTIVITAMINS ,THERAPEUTIC TAB PO SCH (09:41)
[2021-12-16] MEDS: CHOLECALCIFEROL (VIT D3) 1000 UNIT (25 mcg) TAB PO SCH (09:41)
[2021-12-16] MEDS: THIAMINE 100 MG TAB PO SCH (09:42)
[2021-12-16] MEDS: cefTRIAXone/NS 2 GM/100 ML 2 GM/100 ML BAG IV SCH (15:00)
--- NOTE | 2021-12-16 17:07 | Progress Note ---
Assessment and Plan Assessment and plan: #Pneumonia -Chest x-ray, supplemental oxygen, pulse oximetry, nebulizer therapy, IV antibiotic therapy, blood culture #Acute hypoxic respiratory failureworsened - etiology: Secondary to presumed pneumonia - baseline oxygen requirements: Room air - supplemental oxygen: 2 L nasal cannula - Continue protocol: continue pulse oximetry, wean oxygen as tolerated, ordered incentive spirometry and educated patient on how to use it and its importance. - continue to monitor #Suspected 2019 novel coronavirus infectionruled out -COVID 19 PCR ordered -Discontinuing empiric treatment #Elevated BNP -NT proBNP 2100 -Echocardiogram shows normal ejection fraction -Likely secondary to cocaine use; patient has no signs or symptoms of CHF exacerbation #Elevated D-dimer -CT chest w/ contrast shows bilateral patchy infiltrates -Unremarkable CT angio chestruling out pulmonary embolism #Hypertension - home medications: None - current medications: Nifedipine 60 mg daily and losartan 50 mg a - SBP goal <160 and DBP goal <90 while inpatient - continue to monitor #Mild protein caloric malnutrition Albumin 3.6 Starting dietary supplements #Polysubstance dependence -Patient engages in the following substances: Cocaine -Counseled patient about the importance of cessation of substance abuse. Offered resources to help with quitting. Patient expresses understanding. -Time: +15 mins #Alcohol dependence - Counseled patient on the importance of ETOH cessation. Assess patient's current ETOH consumption. Assisted with trying to arrange resources for patient to adequately work towards ETOH cessation. Patient expresses understanding. -CIWA protocol, thiamine, folic acid, multivitamin daily, banana bag. Supportive care. -Time: +15 mins #Advance care planning -Disease education data, care plan discussed, diagnosis discussed, prognosis discussed, patient is full code. Patient knowledges understanding agreement with care plan, +30 minutes. Disposition Plan: Continue medical management Total Time Spent with Patient (Minutes): 45 min History Interval history: No acute events overnight. Hospitalist Physical - Constitutional Vitals: Temp Pulse Resp BP Pulse Ox 97.7 F 105 H 20 194/125 97 12/16/21 11:24 12/16/21 11:24 12/16/21 11:24 12/16/21 11:24 12/16/21 11:24 General appearance: Present: no acute distress, well-nourished - EENT Eyes: Present: PERRL, EOM intact ENT: hearing intact, clear oral mucosa, dentition normal - Neck Neck: Present: supple, normal ROM - Respiratory Respiratory effort: normal Respiratory: bilateral: diminished - Cardiovascular Rhythm: regular Heart Sounds: Present: S1 & S2 - Extremities Extremities: no ischemia, pulses intact, pulses symmetrical, No edema, normal temperature, normal color Peripheral Pulses: within normal limits - Abdominal General gastrointestinal: soft, non-tender, non-distended, normal bowel sounds - Integumentary Integumentary: Present: clear, warm, dry - Psychiatric Psychiatric: appropriate mood/affect, cooperative - Neurologic Neurologic: CNII-XII intact - Allied Health Allied health notes reviewed: nursing HEART Score - HEART Score Troponin: Troponin T 0.013 ng/mL (0.00-0.029) 12/14/21 14:34 Results - Labs CBC & Chem 7: 12/15/21 05:33 12/15/21 05:33 Labs: Laboratory Last Values WBC 8.1 K/mm3 (4.5-11.0) 12/15/21 05:33 RBC 4.67 M/mm3 (3.65-5.03) 12/15/21 05:33 Hgb 13.5 gm/dl (11.8-15.2) 12/15/21 05:33 Hct 41.6 % (35.5-45.6) 12/15/21 05:33 MCV 89 fl (84-94) 12/15/21 05:33 MCH 29 pg (28-32) 12/15/21 05:33 MCHC 33 % (32-34) 12/15/21 05:33 RDW 19.5 % (13.2-15.2) H 12/15/21 05:33 Plt Count 132 K/mm3 (140-440) L 12/15/21 05:33 Lymph % (Auto) 7.4 % (13.4-35.0) L 12/15/21 05:33 Nance % (Auto) 2.6 % (0.0-7.3) 12/15/21 05:33 Eos % (Auto) 0.0 % (0.0-4.3) 12/15/21 05:33 Baso % (Auto) 0.2 % (0.0-1.8) 12/15/21 05:33 Lymph # (Auto) 0.6 K/mm3 (1.2-5.4) L 12/15/21 05:33 Nance # (Auto) 0.2 K/mm3 (0.0-0.8) 12/15/21 05:33 Eos # (Auto) 0.0 K/mm3 (0.0-0.4) 12/15/21 05:33 Baso # (Auto) 0.0 K/mm3 (0.0-0.1) 12/15/21 05:33 Seg Neutrophils % 89.8 % (40.0-70.0) H 12/15/21 05:33 Seg Neutrophils # 7.3 K/mm3 (1.8-7.7) 12/15/21 05:33 PT 15.8 Sec. (12.2-14.9) H 12/14/21 10:30 INR 1.13 (0.87-1.13) 12/14/21 10:30 APTT 29.1 Sec. (24.2-36.6) 12/14/21 10:30 D-Dimer 690.26 ng/mlDDU (0-234) H 12/14/21 14:34 ABG pH 7.394 pH Units (7.350-7.450) 12/14/21 11:50 ABG pCO2 42.1 mm Hg 12/14/21 11:50 ABG pO2 62.6 mm Hg (80.0-90.0) L 12/14/21 11:50 ABG HCO3 25.2 mmol/L (20.0-26.0) 12/14/21 11:50 ABG O2 Saturation 93.4 % (95.0-99.0) L 12/14/21 11:50 ABG O2 Content 17.7 (0.0-44) 12/14/21 11:50 ABG Base Excess 0.2 mmol/L (-2.0-3.0) 12/14/21 11:50 ABG Hemoglobin 13.9 gm/dl (14.0-18.0) L 12/14/21 11:50 ABG Carboxyhemoglobin 2.9 % (0.0-5.0) 12/14/21 11:50 ABG Methemoglobin 0.6 % (0.0-1.5) 12/14/21 11:50 Oxyhemoglobin 90.1 % (95.0-99.0) L 12/14/21 11:50 FiO2 21 % 12/14/21 11:50 Sodium 138 mmol/L (137-145) 12/15/21 05:33 Potassium 4.0 mmol/L (3.6-5.0) 12/15/21 05:33 Chloride 104.9 mmol/L (98-107) 12/15/21 05:33 Carbon Dioxide 25 mmol/L (22-30) 12/15/21 05:33 Anion Gap 12 mmol/L 12/15/21 05:33 BUN 8 mg/dL (9-20) L 12/15/21 05:33 Creatinine 0.5 mg/dL (0.8-1.3) L 12/15/21 05:33 Estimated GFR > 60 ml/min 12/15/21 05:33 BUN/Creatinine Ratio 16 % 12/15/21 05:33 Glucose 291 mg/dL (75-100) H 12/15/21 05:33 Calcium 8.6 mg/dL (8.4-10.2) 12/15/21 05:33 Magnesium 2.50 mg/dL (1.7-2.3) H 12/14/21 10:30 Ferritin 165.6 ng/mL (30.0-300.0) 12/14/21 14:34 Total Bilirubin 1.10 mg/dL (0.1-1.2) 12/14/21 10:30 AST 26 units/L (5-40) 12/14/21 10:30 ALT 26 units/L (7-56) 12/14/21 10:30 Alkaline Phosphatase 105 units/L (35-129) 12/14/21 10:30 Ammonia 67.0 umol/L (25-60) H 12/14/21 10:30 Lactate Dehydrogenase 386 units/L (91-180) H 12/14/21 14:34 Troponin T 0.013 ng/mL (0.00-0.029) 12/14/21 14:34 C-Reactive Protein 5.50 mg/dL (0.00-1.30) H 12/14/21 14:34 NT-Pro-B Natriuret Pep 2101 pg/mL (0-900) H 12/14/21 10:30 Total Protein 7.2 g/dL (6.3-8.2) 12/14/21 10:30 Albumin 3.6 g/dL (3.9-5) L 12/14/21 10:30 Albumin/Globulin Ratio 1.0 % 12/14/21 10:30 Procalcitonin < 0.05 ng/mL (<0.15) 12/14/21 14:34 Urine Color Yellow (Yellow) 12/14/21 09:33 Urine Turbidity Clear (Clear) 12/14/21 09:33 Urine pH 6.0 (5.0-7.0) 12/14/21 09:33 Ur Specific [place] 1.016 (1.003-1.030) 12/14/21 09:33 Urine Protein 30 mg/dl mg/dL (Negative) 12/14/21 09:33 Urine Glucose (UA) 50 mg/dL (Negative) 12/14/21 09:33 Urine Ketones Neg mg/dL (Negative) 12/14/21 09:33 Urine Blood Neg (Negative) 12/14/21 09:33 Urine Nitrite Neg (Negative) 12/14/21 09:33 Urine Bilirubin Neg (Negative) 12/14/21 09:33 Urine Urobilinogen 4.0 mg/dL (<2.0) 12/14/21 09:33 Ur Leukocyte Esterase Neg (Negative) 12/14/21 09:33 Urine WBC (Auto) 1.0 /HPF (0.0-6.0) 12/14/21 09:33 Urine RBC (Auto) 1.0 /HPF (0.0-6.0) 12/14/21 09:33 Urine Mucus Few /HPF 12/14/21 09:33 Urine Opiates Screen Negative 12/14/21 11:04 Urine Methadone Screen Negative 12/14/21 11:04 Ur Barbiturates Screen Negative 12/14/21 11:04 Ur Phencyclidine Scrn Negative 12/14/21 11:04 Ur Amphetamines Screen Negative 12/14/21 11:04 U Benzodiazepines Scrn Negative 12/14/21 11:04 Urine Cocaine Screen Positive 12/14/21 11:04 U Marijuana (THC) Screen Negative 12/14/21 11:04 Drugs of Abuse Note Disclamer 12/14/21 11:04 Plasma/Serum Alcohol < 0.01 % (0-0.07) 12/14/21 10:30 SARS-CoV-2 (PCR) Negative (Negative) 12/16/21 09:40 Microbiology: Microbiology 12/14/21 10:30 Peripheral/Venous Blood Culture - Preliminary NO GROWTH AFTER 48 HOURS 12/14/21 10:30 Peripheral/Venous Blood Culture - Preliminary NO GROWTH AFTER 48 HOURS Soto/IV: Voiding Method Toilet Active Medications - Current Medications Current Medications: Generic Name Dose Route Start Last Admin Trade Name Freq PRN Reason Stop Dose Admin Acetaminophen 650 mg 12/14/21 14:13 Acetaminophen 325 Mg Tab PO Q4H PRN Pain MILD(1-3)/Fever >100.5/ARIAS Albuterol 2.5 mg 12/14/21 14:13 Albuterol 2.5 Mg/3 Ml Nebu IH Q4HRT PRN Shortness Of Breath Ascorbic Acid 500 mg 12/14/21 22:00 12/16/21 09:40 Ascorbic Acid 500 Mg Tab PO 500 mg BID ULISES Administration Azithromycin 500 mg 12/15/21 10:00 12/16/21 09:40 Azithromycin 250 Mg Tab PO 12/18/21 10:01 500 mg QDAY ULISES Administration Protocol Cholecalciferol 1,000 unit 12/15/21 10:00 12/16/21 09:41 Cholecalciferol (Vit D3) 1000 Unit (25 Mcg) Tab PO 1,000 unit QDAY ULISES Administration Folic Acid 1 mg 12/15/21 10:00 12/16/21 09:41 Folic Acid 1 Mg Tab PO 1 mg QDAY ULISES Administration Heparin Sodium (Porcine) 5,000 unit 12/14/21 22:00 12/16/21 09:41 Heparin 5,000 Unit/1 Ml Vial SUB-Q 5,000 unit Q12HR ULISES Administration Hydromorphone HCl 0.25 mg 12/14/21 14:13 Hydromorphone 0.5 Mg/0.5 Ml Inj IV Q23H PRN Pain, Moderate (4-6) Ceftriaxone Sodium 2 gm in 100 mls @ 200 mls/hr 12/15/21 14:00 12/15/21 19:59 Rocephin/Ns 2 Gm/100 Ml IV 12/18/21 18:59 Infused Q24H ULISES Infusion Protocol Lorazepam 2 mg 12/14/21 17:01 12/15/21 02:46 Lorazepam 2 Mg/Ml Vial IV 2 mg Q1HR PRN Administration CIWA-Ar 8-15 Lorazepam 4 mg 12/14/21 17:01 Lorazepam 2 Mg/Ml Vial IV Q1HR PRN CIWA-Ar 16-25 Losartan Potassium 50 mg 12/16/21 10:00 12/16/21 09:40 Losartan 50 Mg Tab PO 50 mg QDAY ULISES Administration Methylprednisolone Sodium Succinate 40 mg 12/14/21 18:00 12/16/21 02:46 Methylprednisolone Sod Succinate 40 Mg/1 Ml Inj IV 40 mg Q8H ULISES Administration Multivitamins 1 each 12/15/21 10:00 12/16/21 09:41 Multivitamins ,Therapeutic Tab PO 1 each DAILY ULISES Administration Nifedipine 60 mg 12/16/21 10:00 12/16/21 09:40 Nifedipine Xl 60 Mg Tab PO 60 mg QDAY ULISES Administration Ondansetron HCl 4 mg 12/14/21 14:13 Ondansetron 4 Mg/2 Ml Inj IV Q8H PRN Nausea And Vomiting Oxycodone/Acetaminophen 1 tab 12/14/21 14:13 Oxycodone /Acetaminophen 5-325mg Tab PO Q16H PRN Pain, Moderate (4-6) Sodium Chloride 10 ml 12/14/21 22:00 12/16/21 09:41 Sodium Chloride 0.9% 10 Ml Flush Syringe IV 10 ml BID ULISES Administration Sodium Chloride 10 ml 12/14/21 14:13 Sodium Chloride 0.9% 10 Ml Flush Syringe IV PRN PRN LINE FLUSH Thiamine HCl 100 mg 12/15/21 10:00 12/16/21 09:42 Thiamine 100 Mg Tab PO 100 mg QDAY ULISES Administration Zinc Sulfate 220 mg 12/14/21 22:00 12/16/21 09:40 Zinc Sulfate 220 Mg Cap PO 220 mg BID ULISES Administration Nutrition/Malnutrition Assess - Dietary Evaluation Nutrition/Malnutrition Findings: Nutrition Notes Start: 12/15/21 19:25 Freq: Status: Active Protocol: Document 12/15/21 19:25 NEVA (Rec: 12/15/21 19:44 NEVA [email or web address]) Nutrition Notes 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 Current Diet Cardiac Diet (since D 12/14). Labs/Tests 12/15: BUN 8, Crea 0.5. Pertinent Medications 12/15: Vit C, Vit D3, Folic acid, Thiamine, ZnSO4, others nutritionally unremarkable. 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 Weight Status Obese Subjective/Other Information RD consult for risk of malnutrition assessment. Pt's PO intake of meals has been Good (100%),according to ADL notes. Pt is on Nasal Cannula, O2 saturation @ 96%, according to Physical Assessment History notes. Pt shows no signs of concern for risk of malnutrition at the time, according to Physical Assessment History notes. Percent of energy/protein needs met: Prescribed Cardiac Diet provides for energy/protein needs (2,230 Kcal/85 g) during LOS. Burn Absent Trauma Absent GI Symptoms None Food Allergy No Skin Integrity/Comment Assessment WNL. 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 No Is Patient Ambulatory and/or Out of Bed Yes REE-([facility]-ambulatory/OOB) [ 2568.904 [id number]] Kcal/Kg value to use for calculation 22 Approximate Energy Requirements Using 2346 kcal/Kg Calculation Used for Recommendations Kcal/kg Additional Notes Protein: 0.8-1 g/Kg AdjBW; 78- 97 g/day. Fluids: 1 ml/Kcal, or as per MD. Nutrition Intervention Change Diet Order: Continue Cardiac Diet. Follow-Up By: 12/22/21 Additional Comments Continue monitoring food tolerance, %PO intake of meals , and BM.
[2021-12-17] MEDS: methylPREDNISolone Sod Succinate 40 MG/1 ML INJ IV SCH (03:03)
[2021-12-17] MEDS: ASCORBIC ACID 500 MG TAB PO SCH (10:36)
[2021-12-17] MEDS: FOLIC ACID 1 MG TAB PO SCH (10:36)
[2021-12-17] MEDS: MULTIVITAMINS ,THERAPEUTIC TAB PO SCH (10:37)
[2021-12-17] MEDS: CHOLECALCIFEROL (VIT D3) 1000 UNIT (25 mcg) TAB PO SCH (10:37)
[2021-12-17] MEDS: THIAMINE 100 MG TAB PO SCH (10:37)
[2021-12-17] MEDS: LOSARTAN 50 MG TAB PO SCH (10:37)
[2021-12-17] MEDS: ZINC SULFATE 220 MG CAP PO SCH (10:37)
[2021-12-17] MEDS: HEPARIN 5,000 UNIT/1 ML VIAL SUB-Q SCH (10:38)
[2021-12-17] MEDS: NIFEdipine XL 60 MG TAB PO SCH (10:38)
[2021-12-17] MEDS: AZITHROMYCIN 250 MG TAB PO SCH (10:38)
[2021-12-17 12:29] VITALS: BP 172/99
--- NOTE | 2021-12-17 14:29 | Discharge Summary ---
Providers - Providers Date of Admission: 12/14/21 14:14 Date of discharge: 12/17/21 Attending physician: KIARA SIMMONS MD Primary care physician: GLASS ARTIST Hospitalization Reason for admission: Acute hypoxic respiratory failure Condition: Stable Pertinent studies: Reviewed. Procedures: None. Hospital course: 56 YO Male with HTN, Asthma, CAD S/P Stent Placement, DM presents to ED for evaluation. Patient is lethargic at time of evaluation and provides minimal history. Patient reports "I feel short of breath". Additional history taken EMS staff, as well as ED staff. EMS was notified for the aforementioned symptoms and upon arrival to the patient's extended stay hotel room the patient was found to be in distress and subsequently transported to [facility] for further care and evaluation of the aforementioned symptoms. The patient was seen and evaluated in the emergency department. All lab and imaging studies reviewed. Patient found to have a pulse oximetry of 88% on room air which is consistent with acute hypoxemic respiratory failure. Chest x-ray revealed bilateral pneumonia. Patient admitted to medical floor and initiated on pneumonia protocol as well as coronavirus protocol due to increased risk of worsening symptoms and for medical stabilization. No reports of fever, chills, chest pain, palpitation, skin rash, recent contact, productive cough, known exposure to COVID-19. Patient was initiated on azithromycin and Rocephin for antibiotic coverage of community-acquired pneumonia. The patient was found to have an unremarkable coronavirus PCR, and the COVID-19 protocol was since discontinued. Patient required supplemental oxygen that is since been weaned down to room air. The patient has been counseled at length about the importance of cocaine cessation, and he expresses understanding. Patient was found to have an elevated BNP that was likely secondary to his cocaine usage. Patient was also found to have an elevated D-dimer; however, the patient had an unremarkable CT angio chest ruling out pulmonary embolism. Patient will complete a 5-day course of antibiotics, and he has been recommended to follow-up with his primary care provider he expresses understanding. The patient medically clear for discharge. Disposition: 01 HOME / SELF CARE / HOMELESS Final Discharge Diagnosis (Prints w/discharge instructions): Community-acquired pneumonia, acute hypoxic respiratory failure, elevated BNP, elevated D-dimer, hypertension, mild protein caloric malnutrition, polysubstance dependence, alcohol dependence, obesity. Time spent for discharge: 45 min Core Measure Documentation - Palliative Care Palliative Care/ Comfort Measures: Not Applicable - Core Measures Any of the following diagnoses?: none Exam - Constitutional Vitals: Temp Pulse Resp BP Pulse Ox 97.9 F 94 H 18 172/99 96 12/17/21 12:00 12/17/21 12:00 12/17/21 12:00 12/17/21 12:00 12/17/21 12:00 General appearance: Present: no acute distress, well-nourished, obese - EENT Eyes: Present: PERRL, EOM intact ENT: hearing intact, clear oral mucosa, dentition normal - Neck Neck: Present: supple, normal ROM - Respiratory Respiratory effort: normal Respiratory: bilateral: diminished - Cardiovascular Rhythm: regular Heart Sounds: Present: S1 & S2 - Extremities Extremities: no ischemia, pulses intact, pulses symmetrical, No edema, normal temperature, normal color, Full ROM Peripheral Pulses: within normal limits - Abdominal General gastrointestinal: Present: soft, non-tender, non-distended, normal bowel sounds Male genitourinary: Present: deferred - Rectal Rectal Exam: deferred - Integumentary Integumentary: Present: clear, warm, dry - Musculoskeletal Musculoskeletal: strength equal bilaterally - Psychiatric Psychiatric: appropriate mood/affect, memory intact, cooperative - Neurologic Neurologic: CNII-XII intact, moves all extremities - Allied Health Allied health notes reviewed: nursing Plan Activity: no restrictions Diet: low salt Additional Instructions: 56 YO Male with HTN, Asthma, CAD S/P Stent Placement, DM presents to ED for evaluation. Patient is lethargic at time of evaluation and provides minimal history. Patient reports "I feel short of breath". Additional history taken EMS staff, as well as ED staff. EMS was notified for the aforementioned symptoms and upon arrival to the patient's extended stay hotel room the patient was found to be in distress and subsequently transported to [facility] for further care and evaluation of the aforementioned symptoms. The patient was seen and evaluated in the emergency department. All lab and imaging studies reviewed. Patient found to have a pulse oximetry of 88% on room air which is consistent with acute hypoxemic respiratory failure. Chest x-ray revealed bilateral pneumonia. Patient admitted to medical floor and initiated on pneumonia protocol as well as coronavirus protocol due to increased risk of worsening symptoms and for medical stabilization. No reports of fever, chills, chest pain, palpitation, skin rash, recent contact, productive cough, known exposure to COVID-19. Patient was initiated on azithromycin and Rocephin for antibiotic coverage of community-acquired pneumonia. The patient was found to have an unremarkable coronavirus PCR, and the COVID-19 protocol was since discontinued. Patient required supplemental oxygen that is since been weaned down to room air. The patient has been counseled at length about the importance of cocaine cessation, and he expresses understanding. Patient was found to have an elevated BNP that was likely secondary to his cocaine usage. Patient was also found to have an elevated D-dimer; however, the patient had an unremarkable CT angio chest ruling out pulmonary embolism. Patient will complete a 5-day course of antibiotics, and he has been recommended to follow-up with his primary care provider he expresses understanding. The patient medically clear for discharge. Care Plan Goals: Patient is medically clear for discharge. Assessment: 56 YO Male with HTN, Asthma, CAD S/P Stent Placement, DM presents to ED for evaluation. Patient is lethargic at time of evaluation and provides minimal history. Patient reports "I feel short of breath". Additional history taken EMS staff, as well as ED staff. EMS was notified for the aforementioned symptoms and upon arrival to the patient's extended stay hotel room the patient was found to be in distress and subsequently transported to [facility] for further care and evaluation of the aforementioned symptoms. The patient was seen and evaluated in the emergency department. All lab and imaging studies reviewed. Patient found to have a pulse oximetry of 88% on room air which is consistent with acute hypoxemic respiratory failure. Chest x-ray revealed bilateral pneumonia. Patient admitted to medical floor and initiated on pneumonia protocol as well as coronavirus protocol due to increased risk of worsening symptoms and for medical stabilization. No reports of fever, chills, chest pain, palpitation, skin rash, recent contact, productive cough, known exposure to COVID-19. Patient was initiated on azithromycin and Rocephin for antibiotic coverage of community-acquired pneumonia. The patient was found to have an unremarkable coronavirus PCR, and the COVID-19 protocol was since discontinued. Patient required supplemental oxygen that is since been weaned down to room air. The patient has been counseled at length about the importance of cocaine c essation, and he expresses understanding. Patient was found to have an elevated BNP that was likely secondary to his cocaine usage. Patient was also found to have an elevated D-dimer; however, the patient had an unremarkable CT angio chest ruling out pulmonary embolism. Patient will complete a 5-day course of antibiotics, and he has been recommended to follow-up with his primary care provider he expresses understanding. The patient medically clear for discharge. Follow up with: PRIMARY CARE, [Primary Care Provider] - 7 Days Prescriptions: Losartan [Cozaar] 50 mg PO QDAY #30 tablet NIFEdipine XL [Procardia Xl] 60 mg PO QDAY #30 tablet
== END 2021-12-17 15:15 | disposition home or self-care (01) | DRG 193 ==
LOC: ED 07:34 → 3A 14:14
PROVIDERS: ADMIT Internal Medicine; ATTEND Student in an Organized Health Care Education/Training Program
PROC: 4A033R1 Measurement of Arterial Saturation, Peripheral, Percutaneous Approach (ICD-10-PCS; principal; 2021-12-14)
DX: J18.9 Pneumonia, unspecified organism (principal); J96.01 Acute respiratory failure with hypoxia; I42.8 Other cardiomyopathies; E44.1 Mild protein-calorie malnutrition; F14.20 Cocaine dependence, uncomplicated; Z20.822 Contact with and (suspected) exposure to COVID-19; I10 Essential (primary) hypertension; I25.10 Atherosclerotic heart disease of native coronary artery without angina pectoris; E66.9 Obesity, unspecified; F10.20 Alcohol dependence, uncomplicated; E11.9 Type 2 diabetes mellitus without complications; Z68.30 Body mass index [BMI] 30.0-30.9, adult; Z79.899 Other long term (current) drug therapy; Z95.5 Presence of coronary angioplasty implant and graft; Z82.49 Family history of ischemic heart disease and other diseases of the circulatory system; Z71.41 Alcohol abuse counseling and surveillance of alcoholic
CPT/HCPCS: 36415; 70450; 71045; 71260; 71275; 80048; 80053; 80307; 80320; 81001; 82140; 82728; 82803; 82947; 83615; 83735; 83880; 84145; 84484; 85025; 85379; 85610; 85730; 86140; 87040; 93005; 93306; 94640; 94644; 94760; G0378; J3490; C8929; G0480; J0360; J0456; J0696; J1644; J1940; J2060; J2920; J2930; J3411; J3475; J7030; Q9967; U0003